=== PATIENT | female | born 1980 | race Caucasian/White ===

== ENCOUNTER 2023-03-16 11:33 | Emergency (ER) | payer BC ==
--- NOTE | 2023-03-16 12:47 | RAD REPORT ---
EXAM DESCRIPTION: CT - Head Brain Wo Cont - 03/16/2023 12:34 pm CLINICAL HISTORY: VISUAL DISTURBANCES COMPARISON: Brain Wo Cont dated 03/16/2023 TECHNIQUE: Noncontrast head CT images were obtained without IV contrast. Multiplanar reformats were generated and reviewed. All CT scans are performed using dose optimization technique as appropriate and may include automated exposure control or mA/KV adjustment according to patient size. FINDINGS: No intracranial hemorrhage, mass, or edema. Midline structures are unremarkable. Normal ventricular caliber for age. Swift-white matter differentiation is preserved, without evidence of acute infarct. No abnormal extra- axial fluid collections. Mastoid air cells and visualized portions of the paranasal sinuses are clear. No acute bony findings. IMPRESSION: No evidence of an acute intracranial process.
--- NOTE | 2023-03-16 12:55 | RAD REPORT ---
EXAM DESCRIPTION: MRI - Brain Wo Cont - 03/16/2023 12:34 pm CLINICAL HISTORY: VISUAL DISTURBANCES COMPARISON: Noncontrast head CT of the same day TECHNIQUE: Multiplanar multisequence MRI of the brain performed without IV contrast. FINDINGS: No evidence of acute infarct or other diffusion signal abnormality. No evidence of acute intracranial hemorrhage or abnormal extra-axial fluid collections. Ventricular caliber within normal for age. Midline structures are unremarkable. No white matter signal abnormalities. No mass effect or midline shift. Major vascular flow voids are preserved. Mastoid air cells and paranasal sinuses are clear. IMPRESSION: No acute intracranial process. No evidence of ventriculomegaly or mass effect.
[2023-03-16 13:15] LABS: Hematocrit 43.2 % (36.0-45.0); Lymphocytes % 29.6 % (15.3-44.8); MCV 88.4 fL (80-100); Platelets 267 thou/uL (152-406); RBC Red Blood Cell Count 4.89 M/uL (3.86-4.86)
[2023-03-16 13:24] LABS: Protime INR 1.05
[2023-03-16 13:32] LABS: Potassium 3.9 mEq/L (3.5-5.1); Troponin High Sensitivity 4.5 pg/mL (<58.9)
--- NOTE | 2023-03-16 13:54 | EDPHYS ---
Physician Documentation [facility] Name: Roberta Hernandez Age: 42 yrs Sex: Female : 1980 Arrival Date: 03/16/2023 Time: 11:33 Bed 11 Private MD: Clyde Queen ED Physician Jac Castano HPI: 03/16 13:55 This 42 yrs old Female presents to ER via Ambulatory with complaints of Blurred Vision. cp3 12:00 Patient is a 42-year-old female with a past medical history significant for cp3 diverticulitis who presents to the ED secondary to blurred and double vision in the left eye. Patient endorses that she went to the eye doctor today had a normal exam and they recommended that she come over to the ED. Patient was seen by Dr. Aldridge who performed a detailed eye exam and found no findings on review of optometry records. 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 - Social history:: Smoking status: Reported history of juuling and/or vaping. - Family history:: not pertinent. - Hospitalizations: : No recent hospitalization is reported. - History obtained from: optometry records from dr aldridge reviewed. ROS: 12:00 Constitutional: Negative for fever, chills, and weight loss, Eyes: Negative for injury, cp3 pain, redness, and discharge, Neck: Negative for injury, pain, and swelling, Cardiovascular: Negative for chest pain, palpitations, and edema, Respiratory: Negative for shortness of breath, cough, wheezing, and pleuritic chest pain, Abdomen/GI: Negative for abdominal pain, nausea, vomiting, diarrhea, and constipation, Back: Negative for injury and pain, MS/Extremity: Negative for injury and deformity, Skin: Negative for injury, rash, and discoloration, Neuro: Negative for headache, weakness, numbness, tingling, and seizure, Psych: Negative for depression, anxiety, suicide ideation, homicidal ideation, and hallucinations, Allergy/Immunology: Negative for hives, rash, and allergies, Endocrine: Negative for neck swelling, polydipsia, polyuria, polyphagia, and marked weight changes, Hematologic/Lymphatic: Negative for swollen nodes, abnormal bleeding, and unusual bruising, 12:00 Eyes: Positive for blurry vision, double vision, 12:00 Eyes: Positive for blurry vision, double vision, Exam: 12:00 Constitutional: This is a well developed, well nourished patient who is awake, alert, cp3 and in no acute distress. Head/Face: Normocephalic, atraumatic. Eyes: Pupils equal round and reactive to light, extra-ocular motions intact. Lids and lashes normal. Conjunctiva and sclera are non-icteric and not injected. Cornea within normal limits. Periorbital areas with no swelling, redness, or edema. ENT: Nares patent. No nasal discharge, no septal abnormalities noted. Tympanic membranes are normal and external auditory canals are clear. Oropharynx with no redness, swelling, or masses, exudates, or evidence of obstruction, uvula midline. Mucous membranes moist. Neck: Trachea midline, no thyromegaly or masses palpated, and no cervical lymphadenopathy. Supple, full range of motion without nuchal rigidity, or vertebral point tenderness. No Meningismus. Chest/axilla: Normal chest wall appearance and motion. Nontender with no deformity. No lesions are appreciated. Cardiovascular: Regular rate and rhythm with a normal S1 and S2. No gallops, murmurs, or rubs. Normal PMI, no JVD. No pulse deficits. Respiratory: Lungs have equal breath sounds bilaterally, clear to auscultation and percussion. No rales, rhonchi or wheezes noted. No increased work of breathing, no retractions or nasal flaring. Abdomen/GI: Soft, non-tender, with normal bowel sounds. No distension or tympany. No guarding or rebound. No evidence of tenderness throughout. Back: No spinal tenderness. No costovertebral tenderness. Full range of motion. Neuro: Awake and alert, GCS 15, oriented to person, place, time, and situation. Cranial nerves II-XII grossly intact. Motor strength 5/5 in all extremities. Sensory grossly intact. Cerebellar exam normal. Normal gait. Psych: Awake, alert, with orientation to person, place and time. Behavior, mood, and affect are within normal limits. Vital Signs: 11:45 BP 152 / 99; Pulse 102; Resp 18; Temp 97.7(O); Pulse Ox 97% on R/A; Weight 108.86 kg; db Height 5 ft. 8 in. ; 13:00 BP 137 / 95; Pulse 78; Resp 18; Pulse Ox 97% on R/A; db 14:00 BP 132 / 95; Pulse 79; Resp 16; Pulse Ox 99% on R/A; db 11:45 Body Mass Index 36.49 (108.86 kg, 172.72 cm) db Visual Acuity: 13:00 Left Eye Visual acuity 20/30, ; Right Eye Visual acuity 20/25, ; Both Eyes Visual db acuity 20/15; Without Lenses; MDM: 11:47 Patient medically screened. cp3 12:00 Differential diagnosis: cva, neuritis, itracranial hemorrhage, arrythmia. Data cp3 reviewed: vital signs, nurses notes, old medical records, per hpi. Consideration of Admission/Observation Escalation of care including admission/observation considered. External Records Reviewed: Outpatient record: has records from optometry- normal exam, 20/40 OD OS: 20/40 OU 20/20. anterior and posterior exam normal. dx: minor opacity of cornea, bilateral - needs neuro exam, unqualified vision loss, normal right vision. 13:10 ED course: ekg interpreted by me - rate 83, sinus rhythm, no evidence of acute mi. cp3 13:55 ED course: quality assurance monitor body interpreted by me: Rate 75, normal sinus rhythm. ED course: cp3 Patient endorses vision is improved and left eye. Reviewed results and findings with patient and visitor at bedside and patient will follow-up with neurology. 03/16 11:59 Order name: Basic Metabolic Panel; Complete Time: 13:51 3 03/16 11:59 Order name: CBC with Diff; Complete Time: 13:32 3 03/16 13:51 Interpretation: WBC 6.90; RBC 4.89; HGB 15.3; HCT 43.2; MCV 88.4; MCH 31.2; MCHC 35.4; cp3 PLT 267; RDW 12.8; MPV 9.0; CHELSEA% 62.3; LYM% 29.6; MN% 6.7; EOSINOPHIL % 0.8; BASO% 0.6; NEUT A 4.3; LYMA 2.0; MNA 0.5; EOSA 0.1; BASOA 0.0. 03/16 11:59 Order name: High Sensitivity Troponin; Complete Time: 13:51 cp3 03/16 13:51 Interpretation: Troponin HS 4.5. cp3 03/16 11:59 Order name: Protime (+inr); Complete Time: 13:32 cp3 03/16 13:51 Interpretation: INR <p>1.05</p>; PT 11.5. cp3 03/16 11:59 Order name: Ptt, Activated; Complete Time: 13:32 cp3 03/16 13:52 Interpretation: PTT 34.0. cp3 03/16 11:59 Order name: CT Head Brain wo Cont; Complete Time: 12:59 cp3 03/16 12:11 Order name: Brain Wo Cont; Complete Time: 12:59 EDMS 03/16 11:59 Order name: EKG; Complete Time: 12:00 cp3 03/16 11:59 Order name: Accucheck; Complete Time: 13:08 cp3 03/16 11:59 Order name: Cardiac monitoring; Complete Time: 13:08 cp3 03/16 11:59 Order name: EKG - Nurse/Tech; Complete Time: 13:08 cp3 03/16 11:59 Order name: IV Saline Lock; Complete Time: 13:08 cp3 03/16 11:59 Order name: Labs collected and sent; Complete Time: 13:08 cp3 03/16 11:59 Order name: NPO; Complete Time: 13:08 3 03/16 11:59 Order name: O2 Per Protocol; Complete Time: 13:08 cp3 03/16 11:59 Order name: O2 Sat Monitoring; Complete Time: 13:08 cp3 03/16 11:59 Order name: Stroke Swallow Screen; Complete Time: 13:08 3 03/16 12:11 Order name: Visual Acuity; Complete Time: 13:19 cp3 Administered Medications: No medications were administered Disposition Summary: 03/16/23 13:54 Discharge Ordered Notes: Location: Home cp3 Condition: Stable cp3 Diagnosis - Low vision, left eye, normal vision right eye cp3 Followup: cp3 - With: Pramod Stern MD - When: - Reason: Recheck today's complaints Discharge Instructions: - Discharge Summary Sheet cp3 - Blurred Vision, Adult cp3 Forms: - Medication Reconciliation Form cp3 - Thank You Letter cp3 - Antibiotic Education cp3 - Prescription Opioid Use cp3 - Patient Portal Instructions cp3 - Leadership Thank You Letter cp3 Signatures: Dispatcher [employer] EDJac Brown MD MD cp3 Mia Alicea RN RN db Corrections: (The following items were deleted from the chart) 12:11 12:00 Brain W/Wo Cont+MRI.RAD.BRZ ordered. EDMS EDMS
--- NOTE | 2023-03-16 13:54 | ER ---
Nurse's Notes [facility] Name: Roberta Hernandez Age: 42 yrs Sex: Female : 1980 Arrival Date: 03/16/2023 Time: 11:33 Bed 11 Private MD: Clyde Queen Diagnosis: Low vision, left eye, normal vision right eye Presentation: 03/16 11:45 Chief complaint: Patient states: WOKE UP THIS AM WITH LEFT EYE BLURRY VISION. WENT TO db EYE DOCTOR AND WAS SENT TO ER AFTER EVALUATION. PT HAD RECENT AIRPLANE TRAVEL ON THURSDAY 2 DAYS AGO. Coronavirus screen: Vaccine status: Patient reports receiving the 2nd dose of the covid vaccine. Client denies travel out of the [place] in the last 14 days. At this time, the client does not indicate any symptoms associated with coronavirus-19. Ebola Screen: Patient negative for fever greater than or equal to 101.5 degrees Fahrenheit, and additional compatible Ebola Virus Disease symptoms Patient denies exposure to infectious person. Patient denies travel to an Ebola-affected area in the 21 days before illness onset. No symptoms or risks identified at this time. Initial Sepsis Screen: Does the patient meet any 2 criteria? No. Patient's initial sepsis screen is negative. Does the patient have a suspected source of infection? No. Patient's initial sepsis screen is negative. Risk Assessment: Do you want to hurt yourself or someone else? Patient reports no desire to harm self or others. Onset of symptoms was March 16, 2023. 11:45 Method Of Arrival: Ambulatory 11:45 Acuity: JUS 3 db Triage Assessment: 11:49 General: Appears in no apparent distress. comfortable, Behavior is calm, cooperative. db Pain: Complains of pain in left eye. EENT: Reports blurred vision in left eye. Neuro: Level of Consciousness is awake, alert, obeys commands, Oriented to person, place, time, situation, Reports blurred vision in left eye. Cardiovascular: No deficits noted. Denies chest pain. Respiratory: Airway is patent Respiratory effort is even, unlabored, Respiratory pattern is regular, symmetrical. GI: No deficits noted. No signs and/or symptoms were reported involving the gastrointestinal system. : No deficits noted. No signs and/or symptoms were reported regarding the genitourinary system. Derm: No deficits noted. No signs and/or symptoms reported regarding the dermatologic system. Musculoskeletal: PT HAS WALKING BOOT TO LEFT LEG FROM SURGERY 7 WEEKS AGO. 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 - Social history:: Smoking status: Reported history of juuling and/or vaping. - Family history:: not pertinent. - Hospitalizations: : No recent hospitalization is reported. - History obtained from: optometry records from dr aldridge reviewed. Screenin:52 [facility] ED Fall Risk Assessment (Adult) History of falling in the last 3 months, db including since admission No falls in past 3 months (0 pts) Confusion or Disorientation No (0 pts) Intoxicated or Sedated No (0 pts) Impaired Gait Yes (1 pt) Mobility Assist Device Used Yes (1 pt) Altered Elimination No (0 pt) Score/Fall Risk Level 0 - 2 = Low Risk Oriented to surroundings, Maintained a safe environment. Abuse screen: Denies threats or abuse. Denies injuries from another. Nutritional screening: No deficits noted. Tuberculosis screening: No symptoms or risk factors identified. Assessment: 11:52 Reassessment: Patient appears in no apparent distress at this time. SEE TRIAGE FOR db INITIAL ASSESSMENT. 12:13 Reassessment: PT IS IN MRI. db 12:36 Reassessment: Patient appears in no apparent distress at this time. Patient and/or db family updated on plan of care and expected duration. Pain level reassessed. Patient is alert, oriented x 3, equal unlabored respirations, skin warm/dry/pink. PATIENT RETURNED TO ROOM FROM MRI AND CT. Neuro: Level of Consciousness is awake, alert, obeys commands, Oriented to person, place, time, situation. 13:08 Reassessment: Patient appears in no apparent distress at this time. Patient and/or db family updated on plan of care and expected duration. Pain level reassessed. Patient is alert, oriented x 3, equal unlabored respirations, skin warm/dry/pink. 13:15 Reassessment: PATIENT REQUEST TO TAKE HOME MIGRAINE EXCEDRINE FOR HEADACHE. NOTIFIED db DR. CASTANO AND PATIENT APPROVED TO TAKE MEDICATION. 14:00 Reassessment: Patient appears in no apparent distress at this time. Patient and/or db family updated on plan of care and expected duration. Pain level reassessed. Patient is alert, oriented x 3, equal unlabored respirations, skin warm/dry/pink. General: Appears in no apparent distress. comfortable, Behavior is calm, cooperative. Vital Signs: 11:45 BP 152 / 99; Pulse 102; Resp 18; Temp 97.7(O); Pulse Ox 97% on R/A; Weight 108.86 kg; db Height 5 ft. 8 in. ; 13:00 BP 137 / 95; Pulse 78; Resp 18; Pulse Ox 97% on R/A; db 14:00 BP 132 / 95; Pulse 79; Resp 16; Pulse Ox 99% on R/A; db 11:45 Body Mass Index 36.49 (108.86 kg, 172.72 cm) db Visual Acuity: 13:00 Left Eye Visual acuity 20/30, ; Right Eye Visual acuity 20/25, ; Both Eyes Visual db acuity 20/15; Without Lenses; ED Course: 11:36 Patient arrived in ED. mr 11:36 Clyde Queen MD is Private Physician. mr 11:36 Jac Castano MD is Attending Physician. cp3 11:45 Mia Alicea, LAURA is Primary Nurse. db 11:48 Triage completed. db 11:49 Arm band placed on Patient placed in an exam room. db 12:34 Brain Wo Cont In Process Unspecified. EDMS 12:35 CT Head Brain wo Cont In Process Unspecified. EDMS 13:03 Inserted saline lock: 20 gauge in right antecubital area, using aseptic technique. db Blood collected. 13:53 Pramod Stern MD is Referral Physician. cp3 14:10 Provided Education on: DISCHARGE. db 14:10 Patient has correct armband on for positive identification. Call light in reach. Side db rails up X 1. 14:10 No provider procedures requiring assistance completed. IV discontinued, intact, db bleeding controlled, No redness/swelling at site. Administered Medications: No medications were administered Medication: 14:00 VIS not applicable for this client. db Outcome: 13:54 Discharge ordered by . cp3 14:10 Discharged to home ambulatory, db 14:10 Condition: stable 14:10 Discharge instructions given to patient, Instructed on discharge instructions, follow up and referral plans. 14:13 Patient left the ED. db Signatures: Dispatcher [employer] Jac Alejandra MD MD cp3 Shabbir, Paloma Mia Powers, RN RN db Corrections: (The following items were deleted from the chart) 14:12 14:10 VIS not applicable for this client. db db
[2023-03-16 15:15] VITALS: TEMP 97.7
[2023-03-16 15:17] VITALS: BP 132/95; O2SAT 99
--- NOTE | 2023-03-18 14:40 | EKG ---
Test Date: 2023-03-16 Test Time: 12:56:57 Duplicator Punch Operator: FREDY MEASUREMENT RESULTS: Intervals: Rate: 83 VA: 146 QRSD: 70 QT: 362 QTc: 425 Artemas: P: 52 VA: 146 QRS: -13 T: 16 INTERPRETIVE STATEMENTS: Normal sinus rhythm Normal ECG No previous ECG available for comparison Electronically Signed On 03-18-23 14:33:58 CDT by Mayco Feliz
== END 2023-03-16 14:13 | disposition home or self-care (01) ==
LOC: ER 11:33
DX: H54.52A1 Low vision left eye category 1, normal vision right eye (principal); Z88.2 Allergy status to sulfonamides
CPT/HCPCS: 36415; 70450; 70551; 80048; 84484; 85025; 85610; 85730; 93005; 99284

== ENCOUNTER 2024-11-19 18:26 | Emergency (ER) | payer BC ==
--- OUTSIDE RECORDS SUMMARY | 2024-11-19 18:30 | XMS REPORT | Continuity of Care Document ---
Author Name Unknown Address [address] [place] [address] [facility] Address [address] [place] [address] Care Team Providers Care Physician Scribe Name Role Phone Pcp, No Primary Care Physician [phone] Geneva Vivas NP Attending Clinician [id number] [place] [address] Attending Clinician LISSETTE Huynh Attending Clinician UnavailJOSESITO Rodas Attending Clinician Unavailable DANDRE AMEZQUITA Attending Clinician Akosua diamond Rodriguez Ang - Db Attending Clinician Unavailable Josesito Schmidt Attending Clinician [phone] Liana Russell PT Attending Clinician UnavailAkosua Krishnan MD Attending Clinician [phone] AKOSUA VARGAS Attending Clinician Unavailable Alexx Ponce PTA Attending Clinician UnavailLindsey Best PTA Attending Clinician Unavail Luis Baltazar MD Attending Clinician [phone] Doctor Unassigned, [place] Attending Clinician U navailable Call, [facility] Apa Phone Attending Clinician Unavail AKOSUA Nails Admitting Clinician Unavailable Akosua Vargas MD Admitting Clinician [phone] Payers Payer Name Policy Type Policy Number Effective Date Expirati on Date Source [employer] FED SELECT [id number] 2012 00:00:00 Problems Condition Name Condition Details Condition Category Status Onset Date Resolution Date Last Treatment Date Treating Clinician Comments Source Infection involving suture 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 2022-06 00:00: 00 [facility] Obesity (BMI 30-39.9) Obesity (BMI 30-39.9) Disease Active 01-23 00:00: 00 [facility] Allergies, Adverse Reactions, Alerts Allergy Name Allergy Type Status Severity Reaction(s) Onset Date Inactive Date Treating Clinician Comments Source Sulfa (Sulfona mide Antibiot ics) Drug Allergy Active Hives 01-14 00:00: 00 [facility] SULFA (SULFONA MIDE ANTIBIOT ICS) Drug Class Active Med Hives 01-14 00:00: 00 [facility] Social History Social Habit Start Date Stop Date Quantity Comments Source Sexual orientation C VS Health ASSERTION Possible [facility] Gender identity [facility] History of tobacco use Cigarette Smoker [facility] History of Social function 2024-06-04 00:00:00 2024-06-04 00:00:00 [facility] Tobacco use and exposure 2023-01-15 00:00:00 2023-01-15 00:00:00 User of smokeless tobacco [facility] Sex assigned at 1980 00:00:00 1980 00:00:00 [facility] Smoking Status Start Date Stop Date Source Tobacco smoking consumption unknown [facility] Ex-smoker 2023-01-15 00:00:00 2023-01-15 00:00:00 [facility] Medications Ordered Medication Name Filled Medication Name Start Date Stop Date Current Medication? Ordering Clinician Indication Dosage Frequency Signature (SIG) Comments Components Source inulin (FIBER GUMMIES ORAL) 11-23 14:20: 04 Yes 4g Take 4 g by mouth with evening meal. [facility] magnesium oxide 400 mg (241.3 mg magnesium) tablet 11-23 00:00: 00 Yes [id number] 400mg Take 1 tablet by mouth in the morning. [facility] riboflavin, vitamin B2, 400 mg Tab 11-23 00:00: 00 12-24 04:59 :00 No [id number] 400mg Take 400 mg by mouth in the morning for 30 days. [facility] riboflavin, vitamin B2, 400 mg Tab 11-23 00:00: 00 11-23 00:00 :00 No [id number] 300mg Take 300 mg by mouth in the morning. [facility] cephALEXin 500 mg capsule 2022-06 2-15 00:00: 00 06-27 05:59 :00 No [id number] 500mg Take 1 capsule by mouth 4 (four) times daily for 14 days. [facility] HYDROcodone -acetaminop hen (NORCO 5) 5-325 mg tablet 1 tablet 2022-06 19:45: 00 05-27 20:24 :00 No 1{tbl} 1 tablet, Oral, ONCE, 1 dose, On Thu05/27/23 at 1345, Routine, PACU [facility] morpHINE (4 mg/mL) injection 2 mg 2022-06 19:44: 23 Yes 2mg 2 mg, Slow IV Push, Q5MIN PRN, 5 doses, Starting on Thu05/27/23 at 1344, Until Discontinu ed, Routine, Pain (scale 4-6), PACU [facility] proMETHazin e (PHENERGAN) 12.5 mg in NS 50 mL IV piggyback (CNR) 2022-06 19:44: 23 Yes 12.5mg 12.5 mg, IV Piggyback, at 200 mL/hr Administer over 15 Minutes, PRN, 1 dose, Starting on Thu05/27/23 at 1344, Until Discontinu ed, Routine, Nausea and Vomiting (N/V), PACU [facility] bupivacaine (preserv free) (SENSORCAIN E MPF) 0.25 % (2.5 mg/mL) 20 mL, BUPivacaine liposome (PF) (EXPAREL (PF)) 1.3 % (13.3 mg/mL) 30 mg 2022-06 19:15: 00 05-27 19:55 :37 No PRN, Starting on Thu05/27/23 at 1315, Intra-op [facility] inulin (FIBER GUMMIES ORAL) 2022-06 15:12: 44 Yes 4g Take 4 g by mouth with evening meal. [facility] FAMOTIDINE ORAL 2022-06 15:12: 44 Yes 20mg Take 20 mg by mouth with evening meal. [facility] meloxicam 15 mg tablet 2022-06 15:12: 44 Yes 15mg Take 1 tablet by mouth with evening meal. [facility] HYDROcodone -acetaminop hen 7.5-325 mg per tablet 2022-06 15:12: 44 Yes 1{tbl} Take 1 tablet by mouth every 6 (six) hours as needed for Pain. [facility] inulin (FIBER GUMMIES ORAL) 2022-06 10:00: 16 Yes 4g Take 4 g by mouth with evening meal. [facility] FAMOTIDINE ORAL 2022-06 10:00: 16 Yes 20mg Take 20 mg by mouth with evening meal. [facility] meloxicam 15 mg tablet 2022-06 10:00: 16 Yes 15mg Take 1 tablet by mouth with evening meal. [facility] HYDROcodone -acetaminop hen 7.5-325 mg per tablet 2022-06 10:00: 16 Yes 1{tbl} Take 1 tablet by mouth every 6 (six) hours as needed for Pain. [facility] ondansetron (ZOFRAN) 4 mg tablet 2022-06 00:00: 00 11-23 00:00 :00 No [id number] 4mg Take 1 tablet by mouth every 6 (six) hours. [facility] aspirin 325 mg tablet 2022-06 00:00: 00 06-25 05:59 :00 No [id number] 325mg Take 1 tablet by mouth in the morning for 28 days. [facility] HYDROcodone -acetaminop hen 5-325 mg tablet 2022-06 00:00: 00 06-04 05:59 :00 No [id number] 1{tbl} Take 1 tablet by mouth every 6 (six) hours as needed for Pain (scale 4-6) or Pain (scale 7-10) for up to 7 days. Indication s: acute pain [facility] gadobenate dimeglumine (MULTIHANCE -20 mL) injection 0.2 mL/kg 2022-06 18:15: 00 05-26 18:32 :00 No [id number] .2mL/kg 0.2 mL/kg, Intravenou s, ONCE, 1 dose, On Thu05/26/23 at 1215, Routine [facility] cephALEXin 500 mg capsule 2022-06 00:00: 00 05-16 05:59 :00 No [id number] 500mg Take 1 capsule by mouth 4 (four) times daily for 14 days. [facility] cephALEXin 500 mg capsule 2022-06 00:00: 00 04-26 04:59 :00 No [id number] 500mg Take 1 capsule by mouth 4 (four) times daily for 10 days. [facility] inulin (FIBER GUMMIES ORAL) 01-23 16:47: 29 Yes 4g Take 4 g by mouth with evening meal. [facility] FAMOTIDINE ORAL 01-23 16:47: 29 11-23 00:00 :00 No 20mg Take 20 mg by mouth with evening meal. [facility] meloxicam 15 mg tablet 01-23 16:47: 29 11-23 00:00 :00 No 15mg Take 1 tablet by mouth with evening meal. [facility] HYDROcodone -acetaminop hen 7.5-325 mg per tablet 01-23 16:47: 29 11-23 00:00 :00 No 1{tbl} Take 1 tablet by mouth every 6 (six) hours as needed for Pain. [facility] Immunizations Ordered Immunization Name Filled Immunization Name Date Status Comments Source PPD Test PPD Test 2024-06-04 00:00:00 Completed [facility] Vital Signs Vital Name Observation Time Observation Value Comments S ource Systolic blood pressure 2023-11-24 19:14:00 134 mm[Hg] [place] [facility] Diastolic blood pressure 2023-11-24 19:14:00 78 mm[Hg] [facility] Heart rate 2023-11-24 19:14:00 78 /min [facility] Body temperature 2023-11-24 19:14:00 36.56 Reena [facility] Respiratory rate 2023-11-24 19:14:00 20 /min [facility] Body height 2023-11-24 19:14:00 172.7 cm [facility] Body weight 2023-11-24 19:14:00 110.95 kg [facility] BMI 2023-11-24 19:14:00 37.19 kg/m2 [facility] Body temperature 2023-07-24 15:01:00 36.61 Reena [facility] Respiratory rate 2023-07-24 15:01:00 16 /min [facility] Body height 2023-07-24 15:01:00 175.3 cm [facility] Body weight 2023-07-24 15:01:00 105.235 kg [facility] BMI 2023-07-24 15:01:00 34.26 kg/m2 [facility] Res[facility] rate 2023-06-26 14:27:00 16 /min [facility] Body height 2023-06-26 14:27:00 175.3 cm [facility] Body weight 2023-06-26 14:27:00 105.235 kg [facility] BMI 2023-06-26 14:27:00 34.26 kg/m2 [facility] Body temperature 2023-06-12 15:48:00 36.28 Reena [facility] Body height 2023-06-12 15:48:00 175.3 cm [facility] Body weight 2023-06-12 15:48:00 105.235 kg [facility] BMI 2023-06-12 15:48:00 34.26 kg/m2 [facility] Heart rate 2023-05-27 20:45:00 96 /min [facility] Oxygen saturation in Arterial blood by Pulse oximetry 2023-05-27 20:45:00 97 /min [facility] Systolic blood pressure 2023-05-27 20:06:00 124 mm[Hg] [facility] Diastolic blood pressure 2023-05-27 20:06:00 84 mm[Hg] [facility] Body temperature 2023-05-27 19:51:00 36.78 Reena [facility] Respiratory rate 2023-05-27 19:51:00 16 /min [facility] Body height 2023-05-27 16:22:00 175.3 cm [facility] Body weight 2023-05-27 16:22:00 105.5 kg [facility] BMI 2023-05-27 16:22:00 34.35 kg/m2 [facility] Systolic blood pressure 2023-05-27 16:22:00 146 mm[Hg] [facility] Diastolic blood pressure 2023-05-27 16:22:00 109 mm[Hg] [facility] Heart rate 2023-05-27 16:22:00 98 /min [facility] Body temperature 2023-05-27 16:22:00 36.28 Reena [facility] Respiratory rate 2023-05-27 16:22:00 20 /min [facility] Body height 2023-05-27 16:22:00 175.3 cm [facility] Body weight 2023-05-27 16:22:00 105.5 kg [facility] BMI 2023-05-27 16:22:00 34.35 kg/m2 [facility] Oxygen saturation in Arterial blood by Pulse oximetry 2023-05-27 16:22:00 98 /min [facility] Body weight 2023-05-18 13:57:00 107 kg [facility] BMI 2023-05-18 13:57:00 35.87 kg/m2 [facility] Body temperature 2023-05-15 14:54:00 36.61 Reena [facility] Body height 2023-05-15 14:54:00 172.7 cm [facility] Body weight 2023-05-15 14:54:00 107.049 kg [facility] BMI 2023-05-15 14:54:00 35.88 kg/m2 [facility] Systolic blood pressure 2023-05-01 17:42:00 131 mm[Hg] [facility] Diastolic blood pressure 2023-05-01 17:42:00 93 mm[Hg] [facility] Heart rate 2023-05-01 17:42:00 83 /min [facility] Body height 2023-05-01 17:42:00 172.7 cm [facility] Body weight 2023-05-01 17:42:00 108.863 kg [facility] BMI 2023-05-01 17:42:00 36.49 kg/m2 [facility] Systolic blood pressure 2023-04-15 14:08:00 143 mm[Hg] [facility] Diastolic blood pressure 2023-04-15 14:08:00 94 mm[Hg] [facility] Heart rate 2023-04-15 14:08:00 83 /min [facility] Body temperature 2023-04-15 14:08:00 36.89 Reena [facility] Body height 2023-04-15 14:08:00 172.7 cm [facility] Body weight 2023-04-15 14:08:00 108.863 kg [facility] BMI 2023-04-15 14:08:00 36.49 kg/m2 [facility] Procedures Procedure Date / Time Performed Performing Clinician Source NON-POSITIVE READ PPD 2024-06-06 17:28:00 Pam Vivas [facility] FUNGUS (ROUTINE) CULTURE 2023-05-27 19:37:00 [facility](AEROBIC/ANAEROB IC) 2023-05-27 19:37:00 Akosua Vargas [facility] FUNGUS (ROUTINE) CULTURE 2023-05-27 19:07:00 [facility]ULT[facility](AEROBIC/ANAEROB IC) 2023-05-27 19:07:00 Akosua Vargas [facility] FOOT DEBRIDEMENT 2023-05-27 18:15:00 Akosua Vargas [facility] NOTICE OF PRIVACY PRACTICES 2023-05-27 15:59:30 Doctor Unassigned, [place] [facility] CONSENT/REFUSAL FOR DIAGNOSIS AND TREATMENT 2023-05-27 15:59:10 Doctor Unassigned, [place] [facility] ASSIGNMENT OF BENEFITS 2023-05-27 15:58:48 Docto r Unassigned, [place] [facility] MR ANKLE LEFT W WO CONTRAST 2023-05-26 18:32:33 Vasu Garrett [facility] DISCLOSURE AND CONSENT, MEDICAL AND SURGICAL PROCEDURES 2023-05-19 06:01:00 Doctor Unassigned, [place] [facility] DISCLOSURE AND CONSENT, MEDICAL AND SURGICAL PROCEDURES 2023-05-19 06:01:00 Doctor Unassigned, [place] [facility] DISABILITY/FMLA 2023-05-18 06:01:00 Doctor Unass igned, [place] [facility] DISABILITY/FMLA 2023-05-18 06:01:00 Doctor Unass igned, [place] [facility] XR FOOT 3+ VW LEFT 2023-04-15 14:04:49 [facility]KLE [facility]+ VW LEFT 2023-04-15 14:04:36 Akosua Vargas U [facility] Encounters Start Date/Time End Date/Time Encounter Type Admission Type Attending [facility] Facility Care Department Encounter ID Source 2024-06-06 17:50:00 2024-06-06 17:55:15 Office Visit Geneva Vivas [id number], [facility] reinaldo Diagnosti c [facility], [facility] 1.2.840.114 350.1.13.41 8.2.7.2.686 [id number] [facility] 2024-06-04 10:59:04 2024-06-04 10:59:04 Outpatient LISSETTE ELLIS [facility] [id number] [facility] Alt 2023-11-26 07:30:00 2023-11-26 07:52:30 Outpatient JOSESITO ROGERS [facility] [id number] [facility] 2023-11-26 07:30:00 2023-11-26 07:45:00 Shank Boner Visit Lab, [place] - Josesito Bobo [facility] 1..840.114 350.1.13.10 4.2.7.2.686 [id number] [facility] 2023-11-24 14:30:00 2023-11-24 15:05:08 [id number] 2023-11-24 14:30:00 2023-11-24 15:05:08 Office Visit Josesito Vail [facility] 1.840.114 350.1.13.10 4.2.7.2.686 [id number] [facility] 2023-11-19 15:00:00 2023-11-19 15:00:00 Outpatient R DANDRE AMEZQUITA [facility] [id number] [facility] 2023-08-24 13:45:00 2023-08-24 14:30:00 Ancillary Visit Liana Russell, [facility] 1..840.114 350.1.13.10 4.2.7.2.686 [id number] [facility] 2023-08-24 13:45:00 2023-08-24 13:45:00 Outpatient R SAM [facility] [id number] [facility] 2023-08-17 13:45:00 2023-08-17 14:30:00 Ancillary Visit Alexx Ponce [facility] BUILDING 1..840.114 350.1.13.10 4.2.7.2.686 [id number] [facility] 2023-08-10 13:00:00 2023-08-10 15:32:01 Ancillary Visit Tamra Rivase [facility] BUILDING 1.2.840.114 350.1.13.10 4.2.7.2.686 [id number] [facility] 2023-07-27 13:00:00 2023-07-27 14:03:15 Ancillary Visit Linaa Russell [facility] BUILDING 1.2.840.114 350.1.13.10 4.2.7.2.686 [id number] [facility] 2023-07-24 09:00:00 2023-07-24 09:10:00 Office Visit Akosua Vargas [facility] 1.2.840.114 350.1.13.10 4.2.7.2.686 [id number] [facility] 2023-07-24 09:00:00 2023-07-24 09:00:00 Outpatient R AKOSUA VARGAS [facility] [id number] [facility] 2023-07-20 13:00:00 2023-07-20 13:52:35 Ancillary Visit Liana Russell Craig L [facility] BUILD[facility] 1.2.840.114 350.1.13.10 4.2.7.2.686 [id number] [facility] 2023-07-15 13:45:00 2023-07-15 14:30:00 Ancillary Visit Alexx Ponce Craig L [facility] BUILD[facility] 1.2.840.114 350.1.13.10 4.2.7.2.686 [id number] [facility] 2023-07-09 09:30:00 2023-07-09 10:19:47 Outpatient R AKOSUA VARGAS [facility] [id number] [facility] 2023-07-09 09:30:00 2023-07-09 10:19:47 Ancillary Visit Liana Russell Jie [facility] BU[facility] 1..840.114 350.1.13.10 4.2.7.2.686 [id number] [facility] 2023-07-07 00:00:00 2023-07-07 00:00:00 Patient Secure Msg Doctor Unassigned, [place] [facility] 1.840.114 350.1.13.10 4.2.7.2.686 [id number] [facility] 2023-06-26 08:30:00 2023-06-26 09:34:37 Outpatient R AKOSUA VARGAS [facility] [id number] [facility] 2023-06-26 08:30:00 2023-06-26 09:34:37 Office Visit Pino Vargase [facility] MED[facility] OFF[facility] BUILD[facility] 1..840.114 350.1.13.10 4.2.7.2.686 [id number] [facility] 2023-06-12 09:40:00 2023-06-12 10:16:10 Outpatient R AKOSUA VARGAS [facility] [id number] [facility] 2023-06-12 09:40:00 2023-06-12 10:16:10 [facility] 1..840.114 350.1.13.10 4.2.7.2.686 [id number] [facility] 2023-05-27 10:00:00 2023-05-27 15:00:00 Outpatient R SAM AKOSUA [facility] [id number] [facility] 2023-05-27 10:00:00 2023-05-27 15:00:00 [facility] 1.2.840.114 350.1.13.10 4.2.7.2.686 [id number] [facility] 2023-05-27 11:45:00 2023-05-27 13:21:00 Surgery Akosua Vargas [facility] 1.2.840.114 350.1.13.10 4.2.7.2.686 [id number] [facility] 2023-05-27 00:00:00 2023-05-27 00:00:00 Orders Only Doctor Unassigned, [place] [facility] 1.2.840.114 350.1.13.10 4.2.7.2.686 [id number] [facility] 2023-05-26 10:53:01 2023-05-26 23:59:00 Outpatient R AKOSUA VARGAS [facility] [id number] [facility] 2023-05-26 10:53:01 2023-05-26 23:59:00 Hospital Encounter Akosua Vargas [facility] 1.2.840.114 350.1.13.10 4.2.7.2.686 [id number] [facility] 2023-05-25 00:00:00 2023-05-25 00:00:00 Patient Secure Msg Doctor Unassigned, [place] [facility] 1.2.840.114 350.1.13.10 4.2.7.2.686 [id number] [facility] 2023-05-18 08:15:00 2023-05-18 08:20:00 Pre-Anesth esia Evaluation Call, [facility] Apa Phone [facility] 1.2.840.114 350.1.13.10 4.2.7.2.686 [id number] [facility] 2023-05-18 00:00:00 2023-05-18 00:00:00 Telephone Akosua Vargas [facility] 1.2840.114 350.1.13.10 4.2.7.2.686 [id number] [facility] 2023-05-15 08:50:00 2023-05-15 09:27:00 [facility] [id number] 2023-05-15 08:50:00 2023-05-15 09:27:00 Office Visit Sam [facility] MEDICAL OFFICE BUILDING 1.2840.114 350.1.13.10 4.2.7.2.686 [id number] [facility] 2023-05-01 11:40:00 2023-05-01 13:03:13 [facility] [id number] [facility] 2023-05-01 11:40:00 2023-05-01 13:03:13 Office Visit Sam [facility] MEDICAL OFFICE BUILDING 1.2840.114 350.1.13.10 4.2.7.2.686 [id number] [facility] 2023-05-01 00:00:00 2023-05-01 00:00:00 Patient Secure Msg Doctor Unassigned, [place] [facility] 1.2.840.114 350.1.13.10 4.2.7.2.686 [id number] [facility] 2023-04-15 08:57:50 2023-04-15 23:59:00 Hospital Encounter [facility] MEDICAL OFFICE BUILDING 1.2.840.114 350.1.13.10 4.2.7.2.686 [id number] [facility] 2023-04-15 09:00:00 2023-04-15 10:12:42 Office Visit [facility] MEDICAL OFFICE BUILDING 1.2840.114 350.1.13.10 4.2.7.2.686 [id number] [facility] 2023-04-15 08:55:00 2023-04-15 08:56:00 Outpatient R AKOSUA VARGAS [facility] [id number] [facility] 2023-04-15 08:55:00 2023-04-15 08:56:00 Hospital Encounter Akosua Vargas [facility] MEDICAL OFFICE BUILDING 1.2.840.114 350.1.13.10 4.2.7.2.686 [id number] [facility] Results Test Description Test Time Test Comments Results Result Co mments Source [facility] Notes PPD read completed. Results and recommendations reviewed with patient in Date/Time Note Provider Source 2024-06-06 18:58:24 Geneva Vivas NP - 06/06/2024 5:50 PM [employer]IC [employer] Subjective: Patient ID: The patient is a 43 y.o. for a TB skin test. HIV Infection?: No Recent contact with person who has active TB?: No Fibrotic changes on chest x-ray constistent with prior TB?: No Organ transplant in the past?: No Immunosuppression?: No Recent arrival (<5 years) from high prevalence country?: No Previous vacccination with BCG?: No IV drug user?: No Resident or employee of high risk congregate setting?: No Objective: Assessment/Plan: accordance with [facility] Guidelines. 1. Screening examination for pulmonary tuberculosis TB skin read PPD [facility] [id number] 18:58:24 Not on file [facility] [id number] 18:58:24 Diagnosis Screening examination for pu lmonary tuberculosis - Primary [facility] [id number] 18:58:24 [facility] [id number] 18:58:24* [facility] 2024-06-06 18:58:24* Is the person deaf or does he/she have serious difficulty hearing? Answer Date of Assessment Author * Is this person blind or does he/she have serious difficulty seeing even when wearing glasses? Answer Date of Assessment Author * Does this person have serious difficulty walking or climbing stairs? Answer Date of Assessment Author * Does this person have difficulty dressing or bathing? Answer Date of Assessment Author * Because of a physical, mental, or emotional condition, does this person have difficulty doing errands alone such as visiting a doctor's office or shopping? Answer Date of Assessment Author [facility] & [id number] 18:58:24* Because of a physical, mental, or emotional condition, does this person have serious difficulty concentrating, remembering, or making decisions? 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 Tuberculosis is a bacterial infection that affects the lungs. It may also be found in other parts of the body like the brain, kidneys, or spine. It is spread from [id number]-[id number] through the air. Latent TB infection is when the TB germs live in your body without causing symptoms. These “sleeping” germs cannot be passed on to anyone else. Active TB disease is when the germs are active in your body, causing symptoms such as weakness, weight loss, fever, night sweats, and coughing (with or without blood). It is important to screen for this disease because people infected with TB can become seriously ill if they do not receive treatment. What do I do if the tuberculin skin test is negative? A negative skin test usually means you are not infected with tuberculosis. Keep in mind the following: The test may be falsely negative if you were recently infected. It can take 2 to 10 weeks after exposure to TB for the skin test to be positive. If you find yourself in this situation, it is recommended to re-test again in 3 months. Even with a negative skin test, if you have continued TB symptoms, you should be evaluated by your primary care provider. What do I do if the tuberculin skin test is positive? A positive skin test usually means you have a latent TB infection. It does not necessarily mean you have TB disease. It is very important to see your primary care provider. Other tests, such as an x-ray or cultures, are needed to check for active disease. Once you have a positive test, avoid having another one done. A positive result will remain that way for life. The skin reaction of any further TB skin tests could become increasingly severe. Health & [id number] 07:30:00 Images from the original note were not included. Venipuncture collection performed by clean technique on the left anticubitus. Total of 1 attempts were made. Slight pressure and a bandage/dressing were applied to the site(s). The patient experienced no complications. The following specimens were processed according to instructions and sent to [facility] laboratories per lab order on 11/26/2023 : LT BLUE SST 2 RED LAV 2 PPT DK GREEN (LiHep) DK GREEN (SodH) [place] DK BLUE (K2) DK BLUE (S) ACD Blood Culture NIPT/NTD T [facility]
[2024-11-19 20:37] LABS: Absolute Lymphocytes (CBC) 0.9 K/uL (0.7-4.9); Absolute Monocytes 0.7 K/uL (0.1-1.3); Absolute Neutrophil 5.8 K/uL (1.8-8.0); Basophils % 0.4 % (0-1.3); Eosinophils % 0.1 % (0-4.4); Hematocrit 44.1 % (36.0-45.0); Hemoglobin 15.7 g/dL (12.0-15.0); Lymphocytes % 11.8 % (15.3-44.8); MCH 29.9 pg (27.0-35.0); MCHC 35.5 g/dL (32.0-36.0); MCV 84.1 fL (80-100); Monocytes % 9.9 % (3.3-12.3); Neutrophils % 77.8 % (41.7-73.7); Nucleated RBC Absolute Count 0.1 (0-0); Nucleated Red Blood Cells % 0.7 % (0-0); Platelets 166 thou/uL (152-406); RBC Red Blood Cell Count 5.25 M/uL (3.86-4.86); Red Cell Distribution Width 12.3 % (12.1-15.2)
[2024-11-19 20:57] LABS: Albumin 3.6 g/dL (3.4-5.0); Albumin/Globulin Ratio 0.9 (1.1-1.8); Anion Gap 11.3 mEq/L (5.0-15.0); Bilirubin Total 0.7 mg/dL (0.2-1.0); Globulin 4.1 g/dL (2.3-3.5); Protein, Total 7.7 g/dL (6.4-8.2)
[2024-11-19 21:04] LABS: Potassium 4.3 mEq/L (3.5-5.1)
[2024-11-19] MEDS ORDERED: ONDANSETRON 4 MG/2 ML VIAL ONE (21:39)
[2024-11-19] MEDS ORDERED: KETOROLAC 30 MG/ML INJ ONE (21:39)
[2024-11-19] MEDS ORDERED: METOCLOPRAMIDE 10 MG/2mL INJ ONE (21:39)
[2024-11-19] MEDS ORDERED: DIPHENOX/ATROP SULF 1 TAB PO ONE (21:39)
[2024-11-19] MEDS ORDERED: NA CHLORIDE 0.9% 1,000 ML ONE ×3 (21:40→22:49)
[2024-11-19 21:50] LABS: Blood Morphology Comment NOT SEEN (NOT SEEN); Platelet Estimate ADEQ; White Blood Cell Scan OK (OK)
[2024-11-19 22:50] LABS: SARS-CoV-2 Antigen Rapid Res Negative (Negative)
[2024-11-19 23:27] LABS: Specific Gravity 1.041 (1.005-1.030); Specific Gravity > 1.030 (1.005-1.030); Urine Bacteria <20 /HPF (<20); Urine Bilirubin 1+ (Negative); Urine Blood Negative (Negative); Urine Clarity Extremely Turbid (Clear); Urine Color Yellow (Yellow); Urine Glucose TRACE (Negative); Urine Ketones 1+ (Negative); Urine Micro Reflex YN NO BILL MICROSCOPIC; Urine Mucus 4+ /HPF (None Seen); Urine Nitrite NEGATIVE (Negative); Urine Protein 1+ (Negative); Urine Urobilinogen 2+ (Normal); Urine WBC 20-50 /HPF (<5)
[2024-11-19 23:28] LABS: Urine Crystals Unidentified Many /HPF (None Seen); Urine WBC Clump Occasional /HPF (None Seen); Urine Yeast (Budding) Occasional /HPF (None Seen)
--- NOTE | 2024-11-19 23:40 | EDPHYS ---
Physician Documentation [facility] Name: Roberta Hernandez Age: 43 yrs Sex: Female : 1980 Arrival Date: 11/19/2024 Time: 18:26 Bed 18 Private MD: ED Physician Ronald Villatoro HPI: 11/19 19:08 This 43 yrs old Female presents to ER via Unassigned with complaints of sp4 Vomiting, Cough. 11/20 05:37 43-year-old female presents with acute onset of cough also reports vomiting.. Patient sp4 reported watery diarrhea. symptoms started 3 days ago.. 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 - Infectious Disease History:: Denies. - Social history:: Smoking status: Patient denies any tobacco usage or history of. - Family history:: not pertinent. ROS: 11/20 05:37 Constitutional: Negative for fever, chills, and weight loss, positive vomiting, sp4 positive cough, positive diarrhea, positive generalized weakness All other systems are negative, Exam: 05:37 Constitutional: This is a well developed, well nourished patient who is awake, alert, sp4 ill-appearing but nontoxic Head/Face: Normocephalic, atraumatic. Eyes: Pupils equal round and reactive to light, extra-ocular motions intact. Lids and lashes normal. Conjunctiva and sclera are not injected. Cornea within normal limits. Periorbital areas with no swelling, redness, or edema. ENT: Nares patent. No nasal discharge, no septal abnormalities noted. Tympanic membranes are normal and external auditory canals are clear. Oropharynx with no redness, swelling, or masses, exudates, or evidence of obstruction, uvula midline. Mucous membranes moist. Neck: Trachea midline, no thyromegaly or masses palpated, and no cervical lymphadenopathy. Supple, full range of motion without nuchal rigidity, or vertebral point tenderness. Chest/axilla: Normal chest wall appearance and motion. Nontender with no deformity. No lesions are appreciated. Cardiovascular: Regular rate and rhythm with a normal S1 and S2. No gallops, murmurs, or rubs. Normal PMI, no JVD. No pulse deficits. Respiratory: Lungs have equal breath sounds bilaterally, clear to auscultation and percussion. No rales, rhonchi or wheezes noted. No increased work of breathing, no retractions or nasal flaring. Abdomen/GI: Soft, with normal bowel sounds. No distension or tympany. No guarding or rebound. No evidence of tenderness throughout. Back: No spinal tenderness. No costovertebral tenderness. Skin: Warm, dry with normal turgor. Normal color with no rashes, no lesions, and no evidence of cellulitis. MS/ Extremity: Pulses equal, no cyanosis. Neurovascular intact. Full, normal range of motion. Neuro: Awake and alert, GCS 15, oriented to person, place, time, and situation. Cranial nerves II-XII grossly intact. Motor strength 5/5 in all extremities. Sensory grossly intact. Psych: Awake, alert, with orientation to person, place and time. Behavior, mood, and affect are within normal limits Vital Signs: 11/19 19:06 BP 127 / 74; Pulse 113; Resp 18; Temp 98.6; Pulse Ox 100% ; Weight 97.52 kg; Height 5 me1 ft. 8 in. ; Pain 5/10; 21:53 BP 134 / 85; Pulse 116; Resp 20; Pulse Ox 90% on R/A; km10 23:40 BP 102 / 57; Pulse 105; Resp 18; Temp 98.9; Pulse Ox 93% on R/A; km10 19:06 Body Mass Index 32.69 (97.52 kg, 172.72 cm) me1 19:06 Pain Scale: Adult me1 Killian Coma Score: 11/20 05:37 Eye Response: spontaneous(4). Motor Response: obeys commands(6). Verbal Response: sp4 oriented(5). Total: 15. MDM: 11/19 19:10 Medical Screening Exam initiated sp4 11/20 05:37 Differential diagnosis: Nonspecific abd pain, gastritis, diverticulitis, viral sp4 gastroenteritis, gastroenteritis. Data reviewed: vital signs, nurses notes, lab test result(s), CBC, electrolytes, hepatic panel, urinalysis. Consideration of Admission/Observation Escalation of care including admission/observation considered. ED course: Improved after hydration and medications. Stable for discharge home. 11/19 19:08 Order name: CBC with Diff; Complete Time: 22:38 sp4 11/19 19:08 Order name: CMP; Complete Time: 22:38 sp4 11/19 19:08 Order name: Lipase; Complete Time: 22:38 sp4 11/19 19:08 Order name: Test, Urine; Complete Time: 23:36 sp4 11/19 19:08 Order name: UA W/ Microscopic sp4 11/19 20:24 Order name: SARS RAPID; Complete Time: 23:36 sp4 11/19 21:51 Order name: CBC Smear Scan; Complete Time: 22:38 EDMS 11/19 19:08 Order name: IV Saline Lock; Complete Time: 21:36 sp4 11/19 19:08 Order name: Labs collected and sent; Complete Time: 21:36 sp4 Administered Medications: 11/19 21:49 Drug: Ketorolac IVP 30 mg IVP once Route: IVP; Site: right forearm; km10 22:32 Follow up: Response: No adverse reaction 10 21:50 Drug: NS 0.9% IV 1000 ml IV at 1 bolus Per protocol; to be given as a bolus over 60 km10 minutes Route: IV; Rate: 1 bolus; Site: right forearm; 22:32 Follow up: Response: No adverse reaction; IV Status: Completed infusion 10 21:50 Drug: Ondansetron IVP 8 mg IVP once; over 2 minutes Route: IVP; Site: right forearm; km10 22:31 Follow up: Response: No adverse reaction; Nausea is decreased 10 21:50 Drug: metoCLOPramide IVP 10 mg IVP once; over 1 to 2 minutes Route: IVP; Site: right km10 forearm; 22:32 Follow up: Response: No adverse reaction 10 21:50 Drug: Diphenoxylate-Atropine PO 2 tabs PO once Route: PO; km10 22:32 Follow up: Response: No adverse reaction 10 22:31 Drug: NS 0.9% IV 1000 ml IV at 1 bolus Per protocol; to be given as a bolus over 60 km10 minutes Route: IV; Rate: 1 bolus; Site: right antecubital; 23:42 Follow up: Response: No adverse reaction; IV Status: Completed infusion km10 23:42 Not Given (Patient Refused; states she is feeling better): ns 0.9% 1000 ml IV at 1000 km10 ml once; to be given as a bolus over 60 minutes Disposition: 11/20 05:39 Chart complete. sp4 Disposition Summary: 11/19/24 23:39 Discharge Ordered Notes: Location: Home sp4 Problem: new sp4 Symptoms: have improved sp4 Condition: Stable sp4 Diagnosis - Acute viral gastroenteritis, intractable vomiting sp4 Followup: sp4 - With: Private Physician - When: 7 - 10 days - Reason: Recheck today's complaints Discharge Instructions: - Discharge Summary Sheet sp4 - Viral Gastroenteritis, Adult, Ldoj-av-Lwnt sp4 - Clear Liquid Diet, Adult, [id number] sp4 Forms: - Work release form sp4 - Patient Portal Instructions sp4 Prescriptions: - Lomotil 2.5-0.025 mg Oral tablet - take 1 tablet ORAL route every 6 hours As needed PRN diarrhea; 30 tablet; sp4 Refills: 0, Product Selection Permitted - promethazine 25 mg Oral tablet - take 1 tablet ORAL route every 6 hours As needed PRN nausea; 30 tablet; sp4 Refills: 0, Product Selection Permitted - dicyclomine 20 mg Oral tablet - take 1 tablet ORAL route every 6 hours PRN abdominal cramps; 30 tablet; sp4 Refills: 0, Product Selection Permitted - ondansetron 8 mg Oral Tablet,disintegrating - take 1 tablet ORAL route every 8 hours PRN nausea; 30 tablet; Refills: 0, sp4 Product Selection Permitted Signatures: Dispatcher [employer] EDRonald Jhaveri MD MD sp4 Jen Dela Cruz RN RN me1 Brittany Kline RN RN km10 Corrections: (The following items were deleted from the chart) 11/19 19:09 19:09 UA W/ Microscopic+U.LAB.BRZ ordered. EDMS EDMS 20:24 20:24 SARS-COV-2 Antigen Rapid+I.LAB.BRZ ordered. EDMS EDMS
--- NOTE | 2024-11-19 23:40 | ER ---
Nurse's Notes [facility] Name: Roberta Hernandez Age: 43 yrs Sex: Female : 1980 Arrival Date: 11/19/2024 Time: 18:26 Bed 18 Private MD: Diagnosis: Acute viral gastroenteritis, intractable vomiting Presentation: 11/19 19:06 Chief complaint: Patient states: N/V/D, cough, congestion, fever, chills, GRIFFITH, body me1 aches that started Thursday. Coronavirus screen: Vaccine status: Patient reports receiving the 2nd dose of the covid vaccine. Ebola Screen: No symptoms or risks identified at this time. Initial Sepsis Screen: Does the patient meet any 2 criteria? HR > 90 bpm. Does the patient have a suspected source of infection? No. Patient's initial sepsis screen is negative. Risk Assessment: Do you want to hurt yourself or someone else? Patient reports no desire to harm self or others. Onset of symptoms was November 16, 2024. 19:06 Method Of Arrival: Ambulatory az1 19:06 Acuity: JUS 3 me1 Triage Assessment: 20:00 General: Appears ill, Behavior is cooperative. km10 20:00 Neuro: Oriented to person, place, time, situation, Appropriate for age. Respiratory: km10 Respiratory effort is even, unlabored, Denies shortness of breath. Respiratory: Sputum is thick, Parent/caregiver reports the patient having cough that is productive, since . GI: Reports diarrhea, nausea, vomiting, since . 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 - Infectious Disease History:: Denies. - Social history:: Smoking status: Patient denies any tobacco usage or history of. - Family history:: not pertinent. Screenin:54 [facility] ED Fall Risk Assessment (Adult) History of falling in the last 3 months, km10 including since admission No falls in past 3 months (0 pts) Confusion or Disorientation No (0 pts) Intoxicated or Sedated No (0 pts) Impaired Gait No (0 pts) Mobility Assist Device Used No (0 pt) Altered Elimination No (0 pt) Score/Fall Risk Level 0 - 2 = Low Risk. Abuse screen: Denies threats or abuse. Denies injuries from another. Nutritional screening: No deficits noted. Tuberculosis screening: No symptoms or risk factors identified. Assessment: 22:01 Pain: Complains of pain in all over body aches. GI: Abdomen is round Reports diarrhea, km10 nausea, vomiting, since . 22:02 Neuro: Level of Consciousness is awake, alert, Oriented to person, place, time, km10 situation. EENT: Nares congestion. 23:41 Reassessment: Patient states feeling better. Patient states symptoms have improved. km10 Vital Signs: 19:06 BP 127 / 74; Pulse 113; Resp 18; Temp 98.6; Pulse Ox 100% ; Weight 97.52 kg; Height 5 me1 ft. 8 in. ; Pain 5/10; 21:53 BP 134 / 85; Pulse 116; Resp 20; Pulse Ox 90% on R/A; km10 23:40 BP 102 / 57; Pulse 105; Resp 18; Temp 98.9; Pulse Ox 93% on R/A; km10 19:06 Body Mass Index 32.69 (97.52 kg, 172.72 cm) me1 19:06 Pain Scale: Adult me1 Killian Coma Score: 11/20 05:37 Eye Response: spontaneous(4). Motor Response: obeys commands(6). Verbal Response: sp4 oriented(5). Total: 15. ED Course: 11/19 18:29 Patient arrived in ED. ts1 19:07 Ronald Villatoro MD is Attending Physician. sp4 19:08 Triage completed. me1 19:09 Arm band placed on Patient placed in waiting room. me1 20:12 Missed attempt(s): 20 gauge in right forearm. Bleeding controlled, band aid applied, sa1 catheter tip intact. 20:12 Initial lab(s) drawn, by az, sent to lab. sa1 20:14 Missed attempt(s):. vk 21:30 Brittany Kline, RN is Primary Nurse. km10 21:55 Patient has correct armband on for positive identification. Bed in low position. Side km10 rails up X2. Adult w/ patient. Provided Education on: plan of care. Pulse ox on. NIBP on. 22:04 SARS RAPID Sent. oe 23:41 IV discontinued, intact, bleeding controlled, No redness/swelling at site. Pressure km10 dressing applied. Administered Medications: 21:49 Drug: Ketorolac IVP 30 mg IVP once Route: IVP; Site: right forearm; km10 22:32 Follow up: Response: No adverse reaction 10 21:50 Drug: NS 0.9% IV 1000 ml IV at 1 bolus Per protocol; to be given as a bolus over 60 km10 minutes Route: IV; Rate: 1 bolus; Site: right forearm; 22:32 Follow up: Response: No adverse reaction; IV Status: Completed infusion 10 21:50 Drug: Ondansetron IVP 8 mg IVP once; over 2 minutes Route: IVP; Site: right forearm; km10 22:31 Follow up: Response: No adverse reaction; Nausea is decreased km10 21:50 Drug: metoCLOPramide IVP 10 mg IVP once; over 1 to 2 minutes Route: IVP; Site: right km10 forearm; 22:32 Follow up: Response: No adverse reaction km10 21:50 Drug: Diphenoxylate-Atropine PO 2 tabs PO once Route: PO; km10 22:32 Follow up: Response: No adverse reaction km10 22:31 Drug: NS 0.9% IV 1000 ml IV at 1 bolus Per protocol; to be given as a bolus over 60 km10 minutes Route: IV; Rate: 1 bolus; Site: right antecubital; 23:42 Follow up: Response: No adverse reaction; IV Status: Completed infusion 10 23:42 Not Given (Patient Refused; states she is feeling better): ns 0.9% 1000 ml IV at 1000 km10 ml once; to be given as a bolus over 60 minutes Outcome: 23:39 Discharge ordered by . sp4 23:42 Discharged to home ambulatory, with family, km10 23:42 Condition: stable 23:49 Discharge instructions given to patient, family, Instructed on discharge instructions, km10 follow up and referral plans. medication usage, Demonstrated understanding of instructions, follow-up care, medications, Prescriptions given X 4, 23:49 Patient left the ED. km10 Signatures: Demetrius Summers Sergey, MD MD sp4 Adilia Rizo PAS PAS ts1 Jen Dela Cruz RN RN me1 Fabi Radford Sultan 1 Brittany Kline RN RN km10
[2024-11-20 00:26] VITALS: BP 102/57; TEMP 98.9; O2SAT 93
== END 2024-11-19 23:49 | disposition home or self-care (01) ==
LOC: ER 18:26
DX: A08.4 Viral intestinal infection, unspecified (principal); Z11.52 Encounter for screening for COVID-19
CPT/HCPCS: 96361; 85025; 81001; 36415; 81025; 83690; 80053; 96375; 96374; 99284; 87426; J2765; J2405; J7030 ×3